=== PATIENT | female | born 1980 | race Two or more races ===

== ENCOUNTER 2019-05-07 12:48 | Emergency (ER) | payer SELFPAY ==
[~2019-05-07] VITALS: Ht 162.6 cm; Wt 68.0 kg
[~2019-05-07 12:48] MED LIST: IBU800 MG PO
[2019-05-07 13:08] VITALS: BP 115/68
--- NOTE | 2019-05-07 13:08 | NUR ---
ED Nurse Note: Patient walked into ER due to increased left wrist pain. Seen by us on 05/05/2019. Patient did not fill prescription. Arrived here with wrist splint to left arm. Able to move all left fingers with cap fill < 3 sec.
--- NOTE | 2019-05-07 13:50 | Emergency Room Report ---
History of Present Illness General Chief Complaint: Pain Source: Patient Present Illness HPI 38-year-old female with no segment past medical history who was just here at [facility] 2 days ago and diagnosed with contusion of left wrist and treated properly with a symptomatic Velcro splint and ibuprofen here requesting a second evaluation. Patient never filled filled the prep prescription as she was confused whether she had to take it to the hospital or to the pharmacy. Patient has a follow-up with primary care provider. Denies any new fall or injury. Rating her pain 5 out of 10 without radiation. Patient still has a prescription for ibuprofen 800 with her. I explained to her that she needs to take it with any pharmacy and start taking it for symptom relief. Also patient is to follow-up with primary care for further evaluation. Allergies: Coded Allergies: No Known Allergies (Unverified , 05/05/19) Patient History Past Medical History: see triage record Past Surgical History: none Pertinent Family History: none Last Menstrual Period: 04/11/2019 Now: No Immunizations: UTD Reviewed Nursing Documentation: PMH: Agreed; PSxH: Agreed Nursing Documentation-PMH Past Medical History: No Stated History Review of Systems All Other Systems: negative except mentioned in HPI Physical Exam Vital Signs Date Time Temp Pulse Resp B/P (MAP) Pulse Ox O2 Delivery O2 Flow Rate FiO2 05/07/19 13:08 97.9 99 18 115/68 (84) 97 Room Air Sp02 EP Interpretation: reviewed, normal General Appearance: no apparent distress, alert, GCS 15, non-toxic Head: normocephalic, atraumatic Eyes: bilateral eye normal inspection, bilateral eye PERRL ENT: hearing grossly normal, normal pharynx, no angioedema, normal voice Neck: full range of motion, supple, supple/symm/no masses Respiratory: chest non-tender, lungs clear, normal breath sounds, speaking full sentences Cardiovascular #1: regular rate, rhythm, no edema, no murmur Cardiovascular #2: 2+ radial (R), 2+ radial (L) Gastrointestinal: normal bowel sounds, non tender, soft, non-distended, no guarding, no rebound Rectal: deferred Genitourinary: normal inspection, no CVA tenderness Musculoskeletal: back normal, gait/station normal, normal range of motion, non- tender, no calf tenderness Neurologic: alert, oriented x3, responsive, motor strength/tone normal, sensory intact, speech normal Psychiatric: judgement/insight normal, memory normal, mood/affect normal, no suicidal/homicidal ideation Skin: no rash Lymphatic: no adenopathy Medical Decision Making PA Attestation All my diagnosis and treatment plans were reviewed ad discussed with my supervising physician Dr. Engel Diagnostic Impression: Primary Impression: Contusion of wrist, left ER Course 38-year-old female with no segment past medical history who was just here at [facility] 2 days ago and diagnosed with contusion of left wrist and treated properly with a symptomatic Velcro splint and ibuprofen here requesting a second evaluation. Patient never filled filled the prep prescription as she was confused whether she had to take it to the hospital or to the pharmacy. Patient has a follow-up with primary care provider. Denies any new fall or injury. Rating her pain 5 out of 10 without radiation. Patient still has a prescription for ibuprofen 800 with her. I explained to her that she needs to take it with any pharmacy and start taking it for symptom relief. Also patient is to follow-up with primary care for further evaluation. Ddx considered but are not limited to : Wrist sprain, wrist strain, wrist fracture Vital signs: are WNL, pt. is afebrile H&PE are most consistent with: Wrist contusion, second encounter ORDERS: none ED INTERVENTIONS: none DISCHARGE: At this time pt. is stable for d/c to home. Will provide printed patient care instructions, and any necessary prescriptions. Care plan and follow up instructions have been discussed with the patient prior to discharge. Last Vital Signs Date Time Temp Pulse Resp B/P (MAP) Pulse Ox O2 Delivery O2 Flow Rate FiO2 05/07/19 13:08 97.9 99 18 115/68 (84) 97 Room Air Disposition: HOME, SELF-CARE Condition: Stable Referrals: NOT CHOSEN IPA/MD,REFERRING (PCP) Patient Instructions: Jhonnyusion, [id number] Bruno Newman May 07, 2019 13:50
[2019-05-07 13:57] VITALS: BP 124/85
--- NOTE | 2019-05-07 13:57 | NUR ---
ER DISCHARGE NOTE: Patient is cleared to be discharged per ERMD, pt is aox4, on room air, with stable vital signs. pt was given dc and prescription instructions, pt was able to verbalize understanding, pt id band removed. pt is able to ambulate with steady gait. pt took all belongings.
== END 2019-05-07 13:57 | disposition home or self-care (01) ==
LOC: EMR 13:40
DX: S60.212D Contusion of left wrist, subsequent encounter (principal); X58.XXXD Exposure to other specified factors, subsequent encounter
CPT/HCPCS: 99281